=== PATIENT | female | born 1935 | race Caucasian/White ===

== ENCOUNTER 2017-04-24 17:42 | Inpatient (IN) ==
--- NOTE | 2017-04-24 18:11 | Emergency Department Note ---
Arrival - Arrival Chief Complaint: Syncope Stated Complaint: abdominal pain ED Nursing Triage Note: Patient to ER 14 via EMS. Patient complains of a syncopal episode about 2 hours ago. Patient complains of weakness and bloody diarrhea. Last episode of diarrhea was 1645. Mode of Arrival: Stretcher Source: Patient Time Seen by Provider: 04/24/17 18:04 - History of Present Illness HPI Narrative: 82 yo F presents with syncope and bloody diarrhea. Family states she is more pale than usual Onset (ago): day(s) (1) Consistency: constant Severity: moderate Quality: cramping Allergies/Adverse Reactions: Allergies Allergy/AdvReac Type Severity Reaction Status Date / Time No Known Allergies Allergy Unverified 04/24/17 19:00 Review of System - Review of System 12 point system: reviewed and no additional remarkable complaints except as stated Medical,Surgical,& Family Hx - Medical History Cardio: History of: Hypertension Endocrine: History of: Thyroid Disorder Gastrointestinal: History of: GERD Musculoskeletal: History of: Degenerative Disk Disease - Surgical History Reproductive Surgeries: Surgical HX of;: Hysterectomy - Social History Smoking Status: Never smoker Frequency of Alcohol Use: None Type of Drug Use: None Exam Vital Signs: Vital Signs Temperature 97.0 F L 04/24/17 17:44 Pulse Rate 73 04/24/17 19:00 Respiratory Rate 21 04/24/17 19:00 Blood Pressure 132/71 04/24/17 19:00 O2 Sat by Pulse Oximetry 96 04/24/17 19:00 - General General appearance: alert, in no apparent distress, other (pale) - Head Head exam: Present: atraumatic, normocephalic - Eye Eye exam: Present: normal appearance, other (pale conj) - ENT ENT exam: Present: normal exam - Neck Neck exam: Present: normal inspection - Chest Chest inspection: Present: normal inspection - Respiratory Respiratory exam: Present: normal lung sounds bilaterally - Cardiovascular Cardiovascular exam: Present: regular rate - Abdominal Exam Abdominal exam: Present: soft. Absent: tenderness - Extremities Exam Extremities exam: Present: normal inspection - Back Exam Back exam: Present: normal inspection - Neurological Exam Neurological exam: Present: alert, oriented X3. Absent: motor sensory deficit - Psychiatric Psychiatric exam: Present: normal affect - Skin Skin exam: Present: warm, dry, pallor Results - Labs CBC & BMP: 04/24/17 17:56 04/24/17 17:56 - Diagnostic Findings Procedure: CT Abdomen and Pelvis: image reviewed by me (see report) Disposition Clinical Impression: Syncope, Bloody diarrhea Case discussed with: patient Disposition: Still a Patient Condition: Stable
[2017-04-24 18:33] LABS: Basophils # 0.1 10*3/uL (0.0-0.2); Basophils % 0.3 % (0.0-0.8); Eosinophils % 0.1 % (0.00-10.9); Hematocrit 41.3 VOL% (35.7-47.0); Hemoglobin 14.1 GM/DL (12.0-16.0); Immature Granulocytes % 0.8 %; Immature Granulocytes Absolute 0.18 #; Lymphocytes # 2.3 10*3/uL (1.4-4.0); Mean Corpuscular HGB Conc 34.1 GM/DL (32-36); Mean Corpuscular Hemoglobin 32 PG (27-34); Mean Corpuscular Volume 92.8 FL (87-102); Mean Platelet Volume 10.1 FL (9.6-12.0); Monocytes # 1.5 10*3/uL (0.11-0.8); Monocytes % 6.5 % (1.7-12.7); Neutrophils # 18.6 10*3/uL (1.4-7.4); Neutrophils % 82.3 % (38.7-73.9); Platelet Count 347 T/CUMM (130-400); Red Blood Count 4.45 MC/CUMM (3.8-5.5); Red Cell Distribution Width 12.3 % (9.3-17.3); White Blood Count 22.6 T/CUMM (4-12)
[2017-04-24 18:48] LABS: PT Patient Result 10.7 SECS; Partial Thromboplastin Time 25.2 SECS (0-40)
[2017-04-24 18:52] LABS: Alanine Aminotransferase 31 U/L (13-56); Albumin 3.7 G/DL (3.4-5.0); Alkaline Phosphatase 170 U/L (45-117); Aspartate Amino Transferase 35 U/L (0-37); Bilirubin,Total < 0.39 MG/DL (0.2-1.0); Blood Urea Nitrogen 18 MG/DL (7-18); Calcium 9.5 MG/DL (8.5-10.1); Glucose 133 MG/DL (74-106); Magnesium 2.4 MG/DL (1.8-2.4); Osmolality,Calculated 267.5 MOS/KG (273-304); Potassium 4.6 MMOL/L (3.5-5.1); Sodium 132 MMOL/L (136-145); Total Protein 7.4 G/DL (6.4-8.3)
[2017-04-24 19:28] LABS: Lymphocytes 10 % (20-55); Metamyelocytes 2 %; Platelet Estimate Normal; Segmented Neutrophils 81 % (50-85); Total Cells Counted 100
--- NOTE | 2017-04-24 19:54 | CT Report ---
CT abdomen pelvis w con Indication: Abdominal pain and bloody diarrhea Comparison: None Technique: Multiple axial tomographic images of the abdomen and pelvis were obtained after the administration of 100 cc Omnipaque 350 intravenous contrast. Findings: Mild dependent change of the lungs present. Several small hypodensities are demonstrated throughout the liver which are too small to characterize but could reflect cysts. The gallbladder is grossly unremarkable. The pancreas is grossly unremarkable. The spleen is grossly unremarkable. The bilateral adrenal glands are grossly unremarkable. The bilateral kidneys are grossly unremarkable. The urinary bladder is incompletely distended. Status post hysterectomy. Mild wall thickening versus under distention of the transverse, descending, and sigmoid colon. Colitis not excluded. There is fluid noted within the proximal large bowel which may reflect diarrhea causing illness. There is trace free fluid within the pelvis. There is no evidence of gastrointestinal obstruction or acute appendicitis. Moderate atherosclerotic calcifications demonstrated. Visualized osseous and surrounding soft tissue structures demonstrate no acute abnormality. Diffuse osteopenia and scattered degenerative change. There is grade 1-2 anterolisthesis of L4 upon L5 with at least moderate spinal canal narrowing at this level. Chronic appearing mild wedge compression deformity of T12. IMPRESSION: Mild wall thickening versus under distention of the transverse, descending, and sigmoid colon. Colitis not excluded. There is fluid noted within the proximal large bowel which may reflect diarrhea causing illness. There is trace free fluid within the pelvis. Status post hysterectomy and other detailed findings as above. The CT exam was performed using one or more of the following dose reduction techniques: Automated exposure control, adjustment of the mA and/or kV according to patient size, or use of iterative reconstruction technique. PROCEDURE INTERPRETED AT [facility] DEPARTMENT OF RADIOLOGY Final Report Signed by: Dr Ham Landry
[2017-04-24 19:59] LABS: Apearance,Urine Slightly Hazy (Clear); Bilirubin,Urine Negative (Negative); Blood, Urine Negative (Negative); Glucose,Urine (UA) Negative (Negative); Granular Casts,Urine 2 /LPF (0-1); Hyaline Casts,Urine 1 /LPF (0-3); Ketones,Urine Negative (Negative); Nitrite,Urine Negative (Negative); Protein,Urine Negative; Squamous Epithelial Cell,Urine Occasional /HPF (0-10); Urine Color Yellow (Yellow); Urine Specific Gravity 1.012 (1.001-1.035); Urine Urobilinogen < 2.0 EU/DL (0.2-1.0); WBC,Urine 5 /HPF (0-6)
--- NOTE | 2017-04-24 20:16 | XRay Report ---
XR chest 1V portable Indication: Syncope Comparison: Chest x-ray dated July 11, 2012 Technique: Single frontal view of the chest. Findings: The cardiomediastinal silhouette is stable in configuration. Chronic change of the lungs without focal consolidation, pleural effusion, or pneumothorax. Visualized osseous and surrounding soft tissue structures appear grossly unchanged. IMPRESSION: Stable chest x-ray without acute cardiopulmonary process demonstrated. PROCEDURE INTERPRETED AT [facility] DEPARTMENT OF RADIOLOGY Final Report Signed by: Dr Ham Landry
--- NOTE | 2017-04-24 20:17 | Hospitalist History & Physical ---
Assessment and Plan (1) Lower GI bleed Status: Acute Assessment and plan: ct of abdomen shows diffuse thickening, worried about ischemic colitis, IV protonix, serial hgb, consult Dr. mcrae Current Visit: Yes (2) Ischemic colitis Status: Acute Assessment and plan: consult Dr Mcrae for opinion Current Visit: Yes (3) Near syncope Status: Acute Assessment and plan: ns at 125, cont to monitor hgb Current Visit: Yes (4) Hypothyroidism Status: Acute Assessment and plan: need home meds Current Visit: Yes (5) SOB (shortness of breath) Status: Acute Assessment and plan: cxr pending Current Visit: Yes (6) Hypotension Status: Acute Assessment and plan: resolved, will give NS bolus and cont ns at 125 ml/hr Current Visit: Yes (7) Leukocytosis Status: Acute Assessment and plan: UTI, blood cx times two, cxr pending, may be due to colitis, will do meropenem for now Current Visit: Yes (8) Seizure disorder Status: Acute Assessment and plan: need home meds jyoti Current Visit: Yes History of Present Illness Chief complaint: Lower GI bleed History of present illness: Ms. Mascorro is a 82 year old female with a history of chronic constipation who presents to the emergency room with bloody bowel movement. Patient said she was having a lot of abdominal cramping. She normally is very constipated from opioids that she takes for back pain. Son said there was blood in the diaper. Patient had a dark bowel movement in the emergency room. CT of the abdomen showed thickening of the transverse, descending and sigmoid colon. Questionable ischemic colitis. No diverticuli mentioned. Hemoglobin on admission is 14.1. Patient describes a near syncope event at home. Patient ambulates very little during the day and lives with her son. Patient's white count on admission was elevated at 22.6 but she denies any history of fever. Patient reports a history of chronic UTIs and has a mild UTI but nothing to explain the elevated white count. We will start her on meropenem and consult Dr. Mcrae Allergies Allergy/AdvReac Type Severity Reaction Status Date / Time No Known Allergies Allergy Unverified 04/24/17 19:00 Medical,Surgical,& Family Hx - Medical History Cardio: History of: Hypertension Psychological: History of: Depression Neurology: History of: Seizures No history of: Cerebrovascular Accident Endocrine: History of: Thyroid Disorder Gastrointestinal: History of: GERD Musculoskeletal: History of: Degenerative Disk Disease - Surgical History Abdominal Surgeries: Surgical HX of: Appendectomy Reproductive Surgeries: Surgical HX of;: Hysterectomy Additional Surgical History: multiple back surgeries - Family History Family History: Reports;: Family Diabetes Denies;: Family Heart Disease, Family Stroke - Social History Smoking Status: Former smoker (only smoke for 10 yr but was 3 ppk) Frequency of Alcohol Use: None Type of Drug Use: None Marital Status: Single Lives With:: Children Functional capacity: wheelchair bound - Constitutional Constitutional: Present: fatigue. Absent: fever(s), headache(s) - EENT Eyes: Present: blurry vision. Absent: diplopia Ears: Absent: decreased hearing, ear discharge Nose, mouth and throat: Absent: headache(s), sore throat - Cardiovascular Cardiovascular: Present: dyspnea, dyspnea on exertion, orthopnea, palpitations. Absent: chest pain at rest, edema - Respiratory Respiratory: Present: dyspnea, dyspnea on exertion. Absent: wheezing - Gastrointestinal Gastrointestinal: Present: abdominal pain, constipation, hematochezia, nausea. Absent: vomiting - Genitourinary Genitourinary: Absent: difficulty urinating, dysuria - Musculoskeletal Musculoskeletal: Present: back pain - Neurological Neurological: Present: dizziness. Absent: confusion, headache(s), syncope (but near syncope) - Psychiatric Psychiatric: Present: depression. Absent: anxiety - Endocrine Endocrine: Present: cold intolerance, fatigue. Absent: heat intolerance - Hematologic/Lymphatic Hematologic/Lymphatic: Absent: easy bleeding, easy bruising Exam - Constitutional Vitals: Period Temp Pulse Resp BP Sys/Mosley Pulse Ox Last 24 Hr 97.0 F-97.0 F 71-77 15-21 74-132/42-80 96-98 General appearance: normal weight, no acute distress - Head Head exam: Present: normal inspection, normocephalic - Eye Eye exam: Present: EOMI (left eye deviated to the left since ). Absent: scleral icterus Pupils: Present: SENTHIL, normal accommodation - ENT ENT exam: Present: normal exam, normal external ear exam - Neck Neck exam: Absent: lymphadenopathy, thyromegaly - Respiratory Respiratory exam: Present: clear to auscultation bilaterally. Absent: rhonchi, wheezes - Cardiovascular Cardiovascular exam: Present: regular rate and rhythm. Absent: systolic murmur - GI/Abdominal GI/Abdominal exam: Present: normal bowel sounds, soft. Absent: tenderness - Extremities Exam Extremities exam: Present: normal inspection, normal capillary refill - Neurological Exam Neurological exam: Present: alert, oriented X3, CN II-XII intact, motor sensory deficit (bilateral LE weakness 4/5 ), reflexes normal - Psychiatric Psychiatric exam: Present: normal affect, normal mood - Skin Skin exam: Present: normal color, warm Results - Labs CBC & BMP: 04/24/17 17:56 04/24/17 17:56 Lab Results: I have reviewed the past 24 hour labs - Diagnostic Findings Procedure: CT Abdomen and Pelvis: report reviewed by me (wall thickening of the transverse, descending and sigmoid colon )
[2017-04-24] MEDS ORDERED: SODIUM CHLORIDE 0.9% 500 ML IV ONE (20:28)
[2017-04-24] MEDS ORDERED: ONDANSETRON 4 MG/2 ML VIAL IV PRN (21:33)
[2017-04-24] MEDS ORDERED: ACETAMINOPHEN 325 MG TABLET PO PRN (21:33)
[2017-04-24 22:23] LABS: Hematocrit 40.1 VOL% (35.7-47.0); Hemoglobin 13.5 GM/DL (12.0-16.0)
[2017-04-24] MEDS: levETIRAcetam 500 MG TABLET PO SCH (22:58)
[2017-04-24] MEDS: SODIUM CHLORIDE 0.9% 1,000 ML IV SCH (22:58)
[2017-04-24] MEDS: GABAPENTIN 300 MG CAPSULE PO SCH (22:58)
[2017-04-24] MEDS: PANTOPRAZOLE 40 MG VIAL IV SCH (22:59)
[2017-04-24] MEDS: MEROPENEM 1,000 MG in SODIUM CHLORIDE 0.9% 100 ML IV SCH (22:59)
--- NOTE | 2017-04-25 06:05 | EKG Report ---
Stationary ECG Study [facility] ER Test Date: 04/24/2017 6:19:07 PM Pat Name: ROXANNA THEODORE Department: Room: 237 Gender: F [employer]: : 1935 Requested by: Juan F Xavier Order Number: [id number] Reading MD: DALIA JENNINGS Intervals [place] Rate: 69 P: 67 ID: [id number] QRS: 9 QRSD: 90 T: 29 QT: 397 QTc: 416 Interpretive Statements SINUS RHYTHM NONSPECIFIC T-WAVE ABNORMALITY Electronically Signed On 04-28-17 15:29:40 CDT by DALIA JENNINGS [email or web address]
[2017-04-25 07:45] LABS: Basophils % 0.2 % (0.0-0.8); Eosinophils % 0.4 % (0.00-10.9); Hematocrit 34.6 VOL% (35.7-47.0); Hemoglobin 11.6 GM/DL (12.0-16.0); Immature Granulocytes % 0.5 %; Immature Granulocytes Absolute 0.05 #; Lymphocytes # 2.6 10*3/uL (1.4-4.0); Mean Corpuscular HGB Conc 33.5 GM/DL (32-36); Mean Corpuscular Hemoglobin 31 PG (27-34); Mean Corpuscular Volume 93.3 FL (87-102); Mean Platelet Volume 9.6 FL (9.6-12.0); Monocytes # 0.9 10*3/uL (0.11-0.8); Monocytes % 7.8 % (1.7-12.7); Neutrophils # 7.4 10*3/uL (1.4-7.4); Neutrophils % 67.1 % (38.7-73.9); Platelet Count 277 T/CUMM (130-400); Red Blood Count 3.71 MC/CUMM (3.8-5.5); Red Cell Distribution Width 12.6 % (9.3-17.3)
[2017-04-25 08:05] LABS: Lymphocytes 26 % (20-55); Platelet Estimate Adequate; Segmented Neutrophils 66 % (50-85); Total Cells Counted 100
[2017-04-25] MEDS: DONEPEZIL 10 MG TABLET PO SCH (08:16)
[2017-04-25] MEDS: MEMANTINE 10 MG TABLET PO SCH ×2 (08:16→21:24)
[2017-04-25] MEDS: levETIRAcetam 500 MG TABLET PO SCH ×2 (08:16→21:24)
[2017-04-25] MEDS: PANTOPRAZOLE 40 MG VIAL IV SCH ×2 (08:16→21:24)
[2017-04-25] MEDS: LEVOTHYROXINE 100 MCG TABLET PO SCH (08:16)
[2017-04-25 08:20] LABS: Calcium 8.4 MG/DL (8.5-10.1); Osmolality,Calculated 275.7 MOS/KG (273-304)
[2017-04-25] MEDS: MEROPENEM 1,000 MG in SODIUM CHLORIDE 0.9% 100 ML IV SCH ×2 (08:20→21:23)
[2017-04-25 08:28] LABS: Risk Ratio 3.12; VLDL CHOLESTEROL 22.8 MG/DL
[2017-04-25 09:18] LABS: Hematocrit 36.1 VOL% (35.7-47.0); Hemoglobin 12.4 GM/DL (12.0-16.0)
[2017-04-25] MEDS: GABAPENTIN 600 MG TABLET PO SCH ×3 (10:26→18:32)
[2017-04-25] MEDS: SODIUM CHLORIDE 0.9% 1,000 ML IV SCH ×2 (10:56→21:24)
--- NOTE | 2017-04-25 11:44 | Gastrointestinal Consult Note ---
Assessment and Plan (1) Lower GI bleed Status: Acute Assessment and plan: 04/25-sudden onset of lower GI bleeding with abdominal pain and cramping with multiple bloody stools. No prior history of GI bleeding in the past. No prior colonoscopy in the past. H&H trending down from admission at -. Currently on Merrem IV for UTI. Continue to monitor at this time and transfuse as needed. Continue to monitor H&H. Clear liquid diet. Plan an addendum to followed by Dr. Mcrae. Current Visit: Yes History of Present Illness Chief complaint: Diarrhea History of present illness: Ms. Mascorro is a 82 year old female who was admitted to the hospital on yesterday with complaints of abdominal pain and lower GI bleeding. Patient is a fairly good historian however son is at bedside and assist in history taking. Information is also obtained from chart review. Patient states she was in her usual state of health until yesterday morning. She states that she has a history of chronic constipation due to taking pain medications for her back. Yesterday she had an onset of lower abdominal pain and cramping and shortly after that she had a loose diarrhea stools with a moderate amount of bright red blood noted. She states that while at home she had approximately 3-4 more bloody loose stools prior to coming to the hospital. Patient denies any prior history of GI bleeding in the past. She denies any recent weight loss, nausea or vomiting. She denies taking any NSAIDs other than occasional Mobic for back pain or anticoagulants. Upon admission to the hospital, she had a CT of abdomen with IV contrast with findings of mild wall thickening versus distention of the transverse, descending and sigmoid colon with fluid in the proximal large bowel. She was also found to have UTI with gram-positive cocci noted. On admission her H&H was noted at and is trended down to . Patient does not recall having a colonoscopy in the past but she did have an EGD in 2010 with normal findings. She reports she has had 2-3 more mild to moderate bloody bright red stools since admission on yesterday. She does state the abdominal pain is improved however still present prior to bowel movement. Denies any family history of colon cancer in the past. Home Medications Medication Instructions Recorded Confirmed Type Cholecalciferol (Vitamin D3) 2,000 unit PO DAILY 04/24/17 04/24/17 History [Vitamin D3] Gabapentin Cap/Tab [Neurontin 600 mg PO TID 04/24/17 04/24/17 History Cap/Tab] Gabapentin Cap/Tab [Neurontin 900 mg PO BEDTIME 04/24/17 04/24/17 History Cap/Tab] Levothyroxine Tab [Synthroid Tab] 100 mcg PO DAILY@0700 04/24/17 04/24/17 History Lisinopril 10 mg PO DAILY 04/24/17 04/24/17 History Meloxicam 15 mg PO DAILY 04/24/17 04/24/17 History Memantine HCl/Donepezil HCl 1 capsule PO QPM 04/24/17 04/24/17 History [Namzaric 28-10 mg] Ranitidine Tab [Zantac Tab] 150 mg PO DAILY 04/24/17 04/24/17 History Sodium Chl/Potassium Chl Tab 1 tablet PO BID 04/24/17 04/24/17 History [Thermotabs] amLODIPine [Norvasc] 5 mg PO DAILY 04/24/17 04/24/17 History levETIRAcetam [Levetiracetam] 500 mg PO BID 04/24/17 04/24/17 History Allergies Allergy/AdvReac Type Severity Reaction Status Date / Time No Known Allergies Allergy Unverified 04/24/17 19:00 Medical,Surgical,& Family Hx - Medical History Cardio: History of: Hypertension Psychological: History of: Depression Neurology: History of: Seizures No history of: Cerebrovascular Accident Endocrine: History of: Thyroid Disorder Genitourinary: History of: Recurring Urinary Tract Infections Gastrointestinal: History of: GERD No history of: Bowel Obstruction Musculoskeletal: History of: Back/Neck Problems, Degenerative Disk Disease - Surgical History Abdominal Surgeries: Surgical HX of: Appendectomy Reproductive Surgeries: Surgical HX of;: Hysterectomy - Family History Family History: Reports;: Family Diabetes Denies;: Family Heart Disease, Family Stroke - Social History Smoking Status: Former smoker Frequency of Alcohol Use: None Type of Drug Use: None 12 point system: reviewed and no additional remarkable complaints except as stated - Constitutional Constitutional: Present: as per HPI - EENT Eyes: Present: as per HPI Ears: Present: as per HPI Nose, mouth and throat: Present: as per HPI - Cardiovascular Cardiovascular: Present: as per HPI - Respiratory Respiratory: Present: as per HPI - Gastrointestinal Gastrointestinal: Present: as per HPI, abdominal pain, cramping, diarrhea, hematochezia, loose stools - Genitourinary Genitourinary: Present: as per HPI - Musculoskeletal Musculoskeletal: Present: as per HPI - Neurological Neurological: Present: as per HPI - Psychiatric Psychiatric: Present: as per HPI - Endocrine Endocrine: Present: as per HPI - Hematologic/Lymphatic Hematologic/Lymphatic: Present: as per HPI Exam - Constitutional Vitals: Period Temp Pulse Resp BP Sys/Mosley Pulse Ox Last 24 Hr 97.0 F-98.2 F 71-83 15-21 74-132/42-91 95-98 General appearance: normal weight, no acute distress - Head Head exam: Present: normal inspection, normocephalic - Eye Eye exam: Present: other (lids and conjunctiva unremarkable). Absent: scleral icterus - ENT ENT exam: Present: normal exam, normal oropharynx - Neck Neck exam: Present: normal inspection - Respiratory Respiratory exam: Present: clear to auscultation bilaterally. Absent: rales, rhonchi, wheezes - Cardiovascular Cardiovascular exam: Present: regular rate and rhythm. Absent: diastolic murmur , JVD, systolic murmur - GI/Abdominal GI/Abdominal exam: Present: normal bowel sounds, tenderness, soft. Absent: ascites, distended, mass, organomegaly - Extremities Exam Extremities exam: Present: normal inspection, full ROM - Back Exam Back exam: Present: normal inspection - Neurological Exam Neurological exam: Present: alert, oriented X3 - Psychiatric Psychiatric exam: Present: normal affect, normal mood - Skin Skin exam: Present: normal color, warm, dry Results - Labs CBC & BMP: 04/25/17 09:06 04/25/17 07:19 Lab Results: I have reviewed the past 24 hour labs - Diagnostic Findings Procedure: CT Abdomen and Pelvis: report reviewed by me
[2017-04-25 15:09] LABS: Hematocrit 35.2 VOL% (35.7-47.0); Hemoglobin 11.6 GM/DL (12.0-16.0)
--- NOTE | 2017-04-25 20:54 | Hospitalist Progress Note ---
Hospitalist: Subjective Interval history: 82 year old female with a history of chronic constipation who presents to the emergency room with bloody bowel movement. Patient said she was having a lot of abdominal cramping. She normally is very constipated from opioids that she takes for back pain. Son said there was blood in the diaper. Patient had a dark bowel movement in the emergency room. CT of the abdomen showed thickening of the transverse, descending and sigmoid colon. Questionable ischemic colitis. No diverticuli mentioned. Hemoglobin on admission is 14.1. Patient describes a near syncope event at home. Patient ambulates very little during the day and lives with her son. Patient's white count on admission was elevated at 22.6 but she denies any history of fever. Patient reports a history of chronic UTIs and has a mild UTI but nothing to explain the elevated white count. Exam - Constitutional Vitals: Period Temp Pulse Resp BP Sys/Mosley Pulse Ox Last 24 Hr 97.1 F-98.2 F 72-83 18-20 115-141/52-91 95-98 Exam: General: [No Acute Distress] HEENT: [Normocephalic, atraumatic, Extra ocular movements intact] Neck: [Supple, No JVD] Chest: [Clear to auscultation B/L] CV: [S1 + S2 audible without murmur, gallop or rub] Abd: Mild left lower quadrant tenderness Ext: [No edema] Skin: [No purpura, bruising or rash] Rheumatologic: [No Joint deformities] Neurologic: [Strengtg 5/5 all extremities, no gross sensory deficits] Results - Labs CBC & BMP: 04/25/17 14:55 04/25/17 07:19 - Impressions Assessment and Plan (1) Lower GI bleed Status: Acute Assessment and plan: ct of abdomen shows diffuse thickening, worried about ischemic colitis, IV protonix, serial hgb, consult Dr. mcrae Current Visit: Yes (2) Ischemic colitis Status: Acute Assessment and plan: consult Dr Mcrae for opinion Current Visit: Yes (3) Near syncope Status: Acute Assessment and plan: ns at 125, cont to monitor hgb Current Visit: Yes (4) Hypothyroidism Status: Acute Assessment and plan: need home meds Current Visit: Yes (5) SOB (shortness of breath) Status: Acute Assessment and plan: cxr pending Current Visit: Yes (6) Hypotension Status: Acute Assessment and plan: resolved, will give NS bolus and cont ns at 125 ml/hr Current Visit: Yes (7) Leukocytosis Status: Acute Assessment and plan: UTI, blood cx times two, cxr pending, may be due to colitis, will do meropenem for now Current Visit: Yes (8) Seizure disorder Status: Acute Assessment and plan: need home meds jyoti Current Visit: Yes
[2017-04-25] MEDS: GABAPENTIN 300 MG CAPSULE PO SCH (21:19)
[2017-04-26 02:18] LABS: Basophils % 0.4 % (0.0-0.8); Eosinophils # 0.1 10*3/uL (0.0-0.87); Eosinophils % 1.1 % (0.00-10.9); Hematocrit 31.7 VOL% (35.7-47.0); Hemoglobin 10.7 GM/DL (12.0-16.0); Immature Granulocytes % 0.3 %; Immature Granulocytes Absolute 0.03 #; Lymphocytes # 2.9 10*3/uL (1.4-4.0); Lymphocytes % 28.2 % (21.3-54.2); Mean Corpuscular HGB Conc 33.8 GM/DL (32-36); Mean Corpuscular Hemoglobin 31 PG (27-34); Mean Corpuscular Volume 92.2 FL (87-102); Monocytes # 0.6 10*3/uL (0.11-0.8); Monocytes % 6.1 % (1.7-12.7); Neutrophils # 6.6 10*3/uL (1.4-7.4); Neutrophils % 63.9 % (38.7-73.9); Platelet Count 251 T/CUMM (130-400); Red Blood Count 3.44 MC/CUMM (3.8-5.5); Red Cell Distribution Width 12.7 % (9.3-17.3); White Blood Count 10.4 T/CUMM (4-12)
[2017-04-26 02:46] LABS: Calcium 8.2 MG/DL (8.5-10.1); Osmolality,Calculated 279.1 MOS/KG (273-304); Potassium 3.7 MMOL/L (3.5-5.1)
[2017-04-26] MEDS: SODIUM CHLORIDE 0.9% 1,000 ML IV SCH ×3 (03:04→20:55)
[2017-04-26] MEDS: LEVOTHYROXINE 100 MCG TABLET PO SCH (06:07)
[2017-04-26] MEDS: PANTOPRAZOLE 40 MG VIAL IV SCH ×2 (08:49→22:06)
[2017-04-26] MEDS: DONEPEZIL 10 MG TABLET PO SCH (08:49)
[2017-04-26] MEDS: MEMANTINE 10 MG TABLET PO SCH ×2 (08:50→21:07)
[2017-04-26] MEDS: levETIRAcetam 500 MG TABLET PO SCH ×2 (08:50→20:55)
[2017-04-26] MEDS: GABAPENTIN 600 MG TABLET PO SCH ×3 (08:53→16:32)
[2017-04-26] MEDS: MEROPENEM 1,000 MG in SODIUM CHLORIDE 0.9% 100 ML IV SCH ×2 (08:58→22:08)
--- NOTE | 2017-04-26 11:19 | Gastrointestinal Progress Note ---
Assessment and Plan (1) Lower GI bleed Status: Acute Assessment and plan: 04/26-Continued episodes of bright red blood in stool. HH down slightly. Will schedule for colonoscopy on tomorrow. Plan and addendum to follow by Dr Mcrae. 04/25-sudden onset of lower GI bleeding with abdominal pain and cramping with multiple bloody stools. No prior history of GI bleeding in the past. No prior colonoscopy in the past. H&H trending down from admission at -. Currently on Merrem IV for UTI. Continue to monitor at this time and transfuse as needed. Continue to monitor H&H. Clear liquid diet. Plan an addendum to followed by Dr. Mcrae. Current Visit: Yes Gastroenterology - PN: Subj Interval history: CC: Lower GI bleed Pt is awake and alert, lying in bed with family at side. States she had an uneventful night. She is having some continued bloody stools at this time. She states she is having some mild abdominal cramping still along with this. HH has dropped slightly from to 08/08. We will begin prep today for colonoscopy on tomorrow. Pt wishes to proceed with this. Abdomen is soft, nontender. ROS: Denies SOB or chest pain Exam (Progress Note) - Constitutional Vitals: Period Temp Pulse Resp BP Sys/Mosley Pulse Ox Last 24 Hr 96.2 F-98 F 73-82 18-22 127-163/59-76 95-98 - Other Additional findings: General appearance: normal weight, no acute distress - Head Head exam: Present: normal inspection, normocephalic - Eye Eye exam: Present: other (lids and conjunctiva unremarkable). Absent: scleral icterus - ENT ENT exam: Present: normal exam, normal oropharynx - Neck Neck exam: Present: normal inspection - Respiratory Respiratory exam: Present: clear to auscultation bilaterally. Absent: rales, rhonchi, wheezes - Cardiovascular Cardiovascular exam: Present: regular rate and rhythm. Absent: diastolic murmur , JVD, systolic murmur - GI/Abdominal GI/Abdominal exam: Present: normal bowel sounds, tenderness, soft. Absent: ascites, distended, mass, organomegaly - Extremities Exam Extremities exam: Present: normal inspection, full ROM - Back Exam Back exam: Present: normal inspection - Neurological Exam Neurological exam: Present: alert, oriented X3 - Psychiatric Psychiatric exam: Present: normal affect, normal mood - Skin Skin exam: Present: normal color, warm, dry Results - Labs CBC & BMP: 04/26/17 01:45 04/26/17 01:45 Lab Results: I have reviewed the past 24 hour labs
[2017-04-26] MEDS ORDERED: BISACODYL 5 MG TABLET PO ONE (12:00)
[2017-04-26] MEDS ORDERED: POLYETHYLENE GLYCOL POWDER 255 GM BOTTLE PO ONE (13:00)
[2017-04-26] MEDS: GABAPENTIN 300 MG CAPSULE PO SCH (20:56)
--- NOTE | 2017-04-26 21:06 | Hospitalist Progress Note ---
Hospitalist: Subjective Interval history: 82-year-old female with abdominal pain GI bleed and suspected ischemic colitis she is going for a colonoscopy and is getting bowel prep Exam - Constitutional Vitals: Period Temp Pulse Resp BP Sys/Mosley Pulse Ox Last 24 Hr 96.2 F-98 F 76-91 18-22 127-178/64-78 95-98 Exam: General: [No Acute Distress] HEENT: [Normocephalic, atraumatic, Extra ocular movements intact] Neck: [Supple, No JVD] Chest: [Clear to auscultation B/L] CV: [S1 + S2 audible without murmur, gallop or rub] Abd: Mild left lower quadrant tenderness Ext: [No edema] Skin: [No purpura, bruising or rash] Rheumatologic: [No Joint deformities] Neurologic: [Strengtg 5/5 all extremities, no gross sensory deficits] Results - Labs CBC & BMP: 04/26/17 01:45 04/26/17 01:45 - Impressions Assessment and Plan (1) Lower GI bleed & anemia of acute GI blood loss Status: Acute Assessment and plan: ct of abdomen shows diffuse thickening, worried about ischemic colitis, IV protonix, serial hgb. Patient going for a colonoscopy in the morning Current Visit: Yes (2) Ischemic colitis Status: Acute Assessment and plan: Continue IV Merrem Current Visit: Yes (3) Near syncope Status: Acute Assessment and plan: ns at 125, cont to monitor hgb Current Visit: Yes (4) Hypothyroidism Status: Acute Assessment and plan: need home meds Current Visit: Yes (5) SOB (shortness of breath) Status: Acute Assessment and plan: cxr pending Current Visit: Yes (6) Hypotension Status: Acute Assessment and plan: resolved, will give NS bolus and cont ns at 125 ml/hr Current Visit: Yes (7) Leukocytosis Status: Acute Assessment and plan: UTI, blood cx times two, cxr pending, may be due to colitis, will do meropenem for now Current Visit: Yes (8) Seizure disorder Status: Acute Assessment and plan: need home meds jyoti Current Visit: Yes
[2017-04-27] MEDS: SODIUM CHLORIDE 0.9% 1,000 ML IV SCH ×2 (05:18→17:50)
[2017-04-27 05:37] LABS: Basophils # 0.1 10*3/uL (0.0-0.2); Basophils % 0.5 % (0.0-0.8); Eosinophils # 0.2 10*3/uL (0.0-0.87); Eosinophils % 1.6 % (0.00-10.9); Hematocrit 33.1 VOL% (35.7-47.0); Hemoglobin 11.2 GM/DL (12.0-16.0); Immature Granulocytes % 0.4 %; Immature Granulocytes Absolute 0.04 #; Lymphocytes # 3.3 10*3/uL (1.4-4.0); Lymphocytes % 32.6 % (21.3-54.2); Mean Corpuscular HGB Conc 33.8 GM/DL (32-36); Mean Corpuscular Hemoglobin 31 PG (27-34); Mean Corpuscular Volume 92.5 FL (87-102); Mean Platelet Volume 10.2 FL (9.6-12.0); Monocytes # 0.6 10*3/uL (0.11-0.8); Monocytes % 6.2 % (1.7-12.7); Neutrophils % 58.7 % (38.7-73.9); Platelet Count 281 T/CUMM (130-400); Red Blood Count 3.58 MC/CUMM (3.8-5.5); Red Cell Distribution Width 12.7 % (9.3-17.3); White Blood Count 10.2 T/CUMM (4-12)
[2017-04-27] MEDS ORDERED: MAGNESIUM CITRATE 300 ML BOTTLE PO ONE (06:00)
[2017-04-27 06:21] LABS: Calcium 8.6 MG/DL (8.5-10.1); Potassium 3.4 MMOL/L (3.5-5.1)
[2017-04-27] MEDS: PANTOPRAZOLE 40 MG VIAL IV SCH ×2 (08:46→20:08)
[2017-04-27] MEDS: MEROPENEM 1,000 MG in SODIUM CHLORIDE 0.9% 100 ML IV SCH ×2 (08:50→20:10)
[2017-04-27] MEDS: GABAPENTIN 600 MG TABLET PO SCH ×3 (12:47→17:51)
[2017-04-27] MEDS: LEVOTHYROXINE 100 MCG TABLET PO SCH (13:16)
--- NOTE | 2017-04-27 13:22 | History and Physical Update ---
History and Physical Update - History and Physical H&P was reviewed, the patient examined and there: are no changes in the patients condition since last H&P was completed. - Physical Exam Mental Status: alert and oriented Heart: regular rate and rhythm Lung: clear to auscultation Abdomen: within normal limits Vitals: within normal limits
--- NOTE | 2017-04-27 13:58 | Operative Note ---
Date of procedure: 04/27/17 Pre-op diagnosis: Lower GI bleed Procedure: Procedure note: Colonoscopy with biopsies rectosigmoid colon Physician: Dr. Victor Manuel Mcrae Brief clinical abstract: 82-year-old female is admitted with lower GI bleeding. This occurred after onset of crampy abdominal pain. She has been better from the standpoint with no active bleeding the last 24-48 hours. Endoscopic findings: After informed consent was obtained, the patient was placed in the left lateral decubitus position. Digital rectal exam was performed with no palpable abnormalities felt. Pediatric videocolonoscope was inserted into the rectum and advanced to the proximal sigmoid colon. Some looping of the endoscope occurred and I could not advance above this level. Pediatric colonoscope was withdrawn and then adult colonoscope was advanced into the rectum. This was advanced on to the cecum without significant difficulty. Withdrawal time was over 6 minutes duration. Bowel prep was of good quality. No polyps were seen. There were scattered diverticuli in the left colon. In the distal sigmoid colon and proximal rectum there was edema with subepithelial hemorrhage noted. The distal portion of the rectum was spared. Multiple biopsies were obtained from this area for pathologic examination. The endoscope was withdrawn in the rectum with retroflex view showing also moderate sized internal hemorrhoids. The endoscope was then removed. She appeared to tolerate the procedure well. Impression: #1 nonspecific colitis involving rectosigmoid colon-could be ischemic but the distribution with rectal involvement would be atypical. #2 left colon diverticulosis #3 internal hemorrhoids Plan: Advance diet. If tolerates and remains stable without active bleeding, could probably discharge within the next 24 hours. Anesthesia: MAC Surgeon / Physician: Luis Mcrae Estimated blood loss: minimal Specimens: other (Colitis sigmoid colon) Condition: stable Disposition: post procedure unit Results - Labs CBC & BMP: 04/27/17 04:35 04/27/17 04:35 Discharge Plan - Discharge Medications No Action amLODIPine [Norvasc] 5 mg PO DAILY Meloxicam 15 mg PO DAILY Sodium Chl/Potassium Chl Tab [Thermotabs] 1 tablet PO BID Cholecalciferol (Vitamin D3) [Vitamin D3] 2,000 unit PO DAILY levETIRAcetam [Levetiracetam] 500 mg PO BID Lisinopril 10 mg PO DAILY Gabapentin Cap/Tab [Neurontin Cap/Tab] 900 mg PO BEDTIME Gabapentin Cap/Tab [Neurontin Cap/Tab] 600 mg PO TID Ranitidine Tab [Zantac Tab] 150 mg PO DAILY Levothyroxine Tab [Synthroid Tab] 100 mcg PO DAILY@0700 Memantine HCl/Donepezil HCl [Namzaric 28-10 mg] 1 capsule PO QPM - Follow Up or Referral - Forms/Instructions
--- NOTE | 2017-04-27 14:17 | Anesthesia Post-Op ---
Anesthesia Post OP - Post Ansesthetic Evaluation Patient seen in post op: Yes Resp: within normal limits CV: within normal limits Mental: within normal limits Temp: within normal limits [id number]: within normal limits Nausea and Vomiting: within normal limits Pain: within normal limits
[2017-04-27] MEDS: DONEPEZIL 10 MG TABLET PO SCH (14:36)
[2017-04-27] MEDS: levETIRAcetam 500 MG TABLET PO SCH ×2 (14:36→20:07)
[2017-04-27] MEDS: MEMANTINE 10 MG TABLET PO SCH ×2 (14:37→20:11)
--- NOTE | 2017-04-27 15:42 | Hospitalist Progress Note ---
Assessment and Plan (1) Hypercholesterolemia Status: Acute Assessment and plan: Patient on low-cholesterol diet. Patient will have the diet advanced to low residue this for the coming 2 weeks. He has since the patient tomorrow with a repeat H&H Current Visit: Yes (2) Ischemic colitis Status: Acute Assessment and plan: History the patient has a long Current Visit: Yes (3) Lower GI bleed Status: Acute Assessment and plan: Repeat H&H in the morning Current Visit: Yes Hospitalist: Subjective Interval history: Patient has been seen interviewed and examined and chart has been reviewed just got back from GI lab underwent colonoscopy for lower GI bleeding. There is suspicion of colitis there is finding of diverticulosis without diverticular inflammation patient is not bleeding at this time. H&H will be tomorrow. By description of low gastroenterology disease colitis noted in the region of marginal artery however there is also information lower in the distal colon which makes it unusual for her to be ischemic colitis. Will follow up on the biopsy report. Exam - Constitutional Vitals: Period Temp Pulse Resp BP Sys/Mosley Pulse Ox Last 24 Hr 97.0 F-98.0 F 62-96 14-21 105-191/56-78 93-100 General appearance: normal weight - Head Head exam: Present: normocephalic, atraumatic - Eye Eye exam: Present: EOMI Pupils: Present: SENTHIL - Respiratory Respiratory exam: Present: clear to auscultation bilaterally - Cardiovascular Cardiovascular exam: Present: regular rate and rhythm - Extremities Exam Extremities exam: Present: full ROM - Neurological Exam Neurological exam: Present: alert, oriented X3, CN II-XII intact - Psychiatric Psychiatric exam: Present: normal affect, normal mood - Skin Skin exam: Present: normal color, warm, dry Results - Labs CBC & BMP: 04/27/17 04:35 04/27/17 04:35 Lab Results: I have reviewed the past 24 hour labs
[2017-04-27] MEDS: GABAPENTIN 300 MG CAPSULE PO SCH (20:08)
[2017-04-28] MEDS: SODIUM CHLORIDE 0.9% 1,000 ML IV SCH ×3 (04:25→14:31)
[2017-04-28 04:48] LABS: Basophils # 0.1 10*3/uL (0.0-0.2); Basophils % 0.6 % (0.0-0.8); Eosinophils # 0.1 10*3/uL (0.0-0.87); Eosinophils % 1.4 % (0.00-10.9); Hematocrit 31.8 VOL% (35.7-47.0); Hemoglobin 10.9 GM/DL (12.0-16.0); Immature Granulocytes % 0.1 %; Immature Granulocytes Absolute 0.01 #; Lymphocytes # 3.3 10*3/uL (1.4-4.0); Lymphocytes % 38.6 % (21.3-54.2); Mean Corpuscular HGB Conc 34.3 GM/DL (32-36); Mean Corpuscular Hemoglobin 31 PG (27-34); Mean Corpuscular Volume 90.9 FL (87-102); Mean Platelet Volume 10.3 FL (9.6-12.0); Monocytes # 0.7 10*3/uL (0.11-0.8); Monocytes % 7.9 % (1.7-12.7); Neutrophils # 4.4 10*3/uL (1.4-7.4); Neutrophils % 51.4 % (38.7-73.9); Platelet Count 258 T/CUMM (130-400); Red Cell Distribution Width 12.3 % (9.3-17.3); White Blood Count 8.5 T/CUMM (4-12)
[2017-04-28] MEDS: LEVOTHYROXINE 100 MCG TABLET PO SCH (08:28)
[2017-04-28] MEDS: GABAPENTIN 600 MG TABLET PO SCH ×2 (08:29→12:54)
[2017-04-28] MEDS: DONEPEZIL 10 MG TABLET PO SCH (08:29)
[2017-04-28] MEDS: MEMANTINE 10 MG TABLET PO SCH (08:29)
[2017-04-28] MEDS: levETIRAcetam 500 MG TABLET PO SCH (08:29)
[2017-04-28] MEDS: PANTOPRAZOLE 40 MG VIAL IV SCH (08:30)
[2017-04-28] MEDS: MEROPENEM 1,000 MG in SODIUM CHLORIDE 0.9% 100 ML IV SCH (08:34)
--- NOTE | 2017-04-28 10:27 | Gastrointestinal Progress Note ---
Assessment and Plan (1) Lower GI bleed Status: Acute Assessment and plan: 04/28-No further overt bleeding. HH holding at 08/08. Colonoscopy report noted with path report pending. Plan and addendum to follow by Dr Mcrae. 04/26-Continued episodes of bright red blood in stool. HH down slightly. Will schedule for colonoscopy on tomorrow. Plan and addendum to follow by Dr Mcrae. 04/25-sudden onset of lower GI bleeding with abdominal pain and cramping with multiple bloody stools. No prior history of GI bleeding in the past. No prior colonoscopy in the past. H&H trending down from admission at -. Currently on Merrem IV for UTI. Continue to monitor at this time and transfuse as needed. Continue to monitor H&H. Clear liquid diet. Plan an addendum to followed by Dr. Mcrae. Current Visit: Yes Gastroenterology - PN: Subj Interval history: CC: GI bleed Pt is seen awake and alert with family at side. States she rested well overnight and has reported no further bleeding at this time. Colonoscopy results noted with nonspecific colitis, left colon diverticulosis and internal hemorrhoids with path report pending. HH has remained stable at 08/08. She is tolerating a regular diet well at this time. Abdomen is soft, nontender. ROS: Denies SOB or chest pain Exam (Progress Note) - Constitutional Vitals: Period Temp Pulse Resp BP Sys/Mosley Pulse Ox Last 24 Hr 97.3 F-98.7 F 62-98 14-22 126-191/60-80 93-100 General appearance: normal weight, no acute distress - Head Head exam: Present: normal inspection, normocephalic - Eye Eye exam: Present: other (lids and conjunctiva unremarkable). Absent: scleral icterus - ENT ENT exam: Present: normal exam, normal oropharynx - Neck Neck exam: Present: normal inspection - Respiratory Respiratory exam: Present: clear to auscultation bilaterally. Absent: rales, rhonchi, wheezes - Cardiovascular Cardiovascular exam: Present: regular rate and rhythm. Absent: diastolic murmur , JVD, systolic murmur - GI/Abdominal GI/Abdominal exam: Present: normal bowel sounds, soft. Absent: ascites, distended, mass, organomegaly, tenderness - Extremities Exam Extremities exam: Present: normal inspection, full ROM - Back Exam Back exam: Present: normal inspection - Neurological Exam Neurological exam: Present: alert, oriented X3 - Psychiatric Psychiatric exam: Present: normal affect, normal mood - Skin Skin exam: Present: normal color, warm, dry Results - Labs CBC & BMP: 04/28/17 03:52 04/27/17 04:35 Lab Results: I have reviewed the past 24 hour labs
--- NOTE | 2017-04-28 11:28 | Pathology Report from [facility] ---
[facility] ACCESSION # : [id number] PATIENT NAME : Sana Theodore ORDERING DR : DANIA ROJAS MD CLINICAL HX: Lower GI Bleed POST-OP DX: Colitis of rectosigmoid colon SPECIMEN INFO: Sigmoid biopsy GROSS DESCRIPTION: The specimen is received in formalin labeled with the patients name and consists of a 0.6 x 0.4 cm aggregate of cadet tissue. Submitted in one cassette. DIAGNOSIS FOR SANA THEODORE: SIGMOID BIOPSY: Benign colonic mucosal with early superficial ischemic changes and mild neutrophilic debris suggestive of resolving acute self-limited colitis. No evidence of malignancy. COLLECTED DATE: 04/27/2017 [facility] REPORT DATE: 04/28/2017 ELECTRONICALLY SIGNED BY: Percy Guerra III, M.D. 04/28/2017 - 9:44:28 [facility]
--- NOTE | 2017-04-28 11:45 | Discharge Summary ---
Hospital Course - Hospital Course Hospital Course: Ms. Mascorro is an 82-year-old female with a history of chronic constipation who presented to the [place] ED on 04/24/2017 with complaints of bloody bowel movement. Patient does have chronic back pain for which she takes opioids. This contributes to her constipation. At the time of admission, CT of abdomen showed thickening of the transverse, descending and sigmoid colon. Hemoglobin on admission was 14.1. WBC was elevated 22.6 however the patient was afebrile. There was evidence of UTI by urinalysis. Patient was admitted, IV Merrem was started, clear liquid diet was initiated and gastroenterology was consulted. On 04/25/2017 patient's hemoglobin was noted to be 11. 04/27/2017, the patient underwent a colonoscopy with biopsies of rectosigmoid colon. Impressions were as follows: 1. Nonspecific colitis involving rectosigmoid colon. Could be ischemic but the distribution with rectal involvement would be atypical. 2. Left colon diverticulosis 3. Internal hemorrhoids GI recommended advance diet as tolerated. At the time of discharge, H&H was holding and 10 and 31. No further overt bleeding. Pathology from biopsies pending. Patient may call for biopsy results in 1 week. The remainder of her hospital course was uncomplicated highlighted by management of her chronic conditions. At this time she is reached maximum benefit from hospitalization and is stable for discharge. She should follow-up with her PCP in 1-2 weeks. Additional discharge orders and follow-up instructions to follow per Dr. Mccabe. - Time spent with patient Time with patient DS: Greater than 30 minutes Discharge Plan - Discharge Medications No Action amLODIPine [Norvasc] 5 mg PO DAILY Meloxicam 15 mg PO DAILY Sodium Chl/Potassium Chl Tab [Thermotabs] 1 tablet PO BID Cholecalciferol (Vitamin D3) [Vitamin D3] 2,000 unit PO DAILY levETIRAcetam [Levetiracetam] 500 mg PO BID Lisinopril 10 mg PO DAILY Gabapentin Cap/Tab [Neurontin Cap/Tab] 900 mg PO BEDTIME Gabapentin Cap/Tab [Neurontin Cap/Tab] 600 mg PO TID Ranitidine Tab [Zantac Tab] 150 mg PO DAILY Levothyroxine Tab [Synthroid Tab] 100 mcg PO DAILY@0700 Memantine HCl/Donepezil HCl [Namzaric 28-10 mg] 1 capsule PO QPM - Follow Up or Referral - Forms/Instructions Exam - Constitutional Vitals: Period Temp Pulse Resp BP Sys/Mosley Pulse Ox Last 24 Hr 97.3 F-98.7 F 62-98 14-22 126-191/60-80 93-100 Discharge Results Procedures and tests throughout hospitalization: Pending Orders 04/24/17 21:51 Blood Culture Stat 04/25/17 03:15 Occult Blood, Stool Stat Labs on day of discharge: Labs from last 24 hours 04/28/17 03:52 WBC 8.5 RBC 3.50 L Hgb 10.9 L Hct 31.8 L MCV 90.9 MCH 31 MCHC 34.3 RDW 12.3 Plt Count 258 MPV 10.3 Neut % (Auto) 51.4 Lymph % (Auto) 38.6 [place] % (Auto) 7.9 Eos % (Auto) 1.4 Baso % (Auto) 0.6 Neut # (Auto) 4.4 Lymph # (Auto) 3.3 [place] # (Auto) 0.7 Eos # (Auto) 0.1 Baso # (Auto) 0.1 Immature Gran % 0.1 Nucleated RBC % 0.0 Immature Gran # 0.01 Nucleated RBCs # 0.00 Preliminary micro results at discharge 04/24/17 21:51 Blood Culture - Preliminary Blood No growth at 3 days 04/24/17 21:51 Blood Culture - Preliminary Blood No growth at 3 days DS: Provider Date of admission: 04/24/17 20:04 Primary care physician: . No PCP Attending physician on admission: Ryan Knox MD Consults: 04/24/17 21:33 Consult to Physician [CONS] Routine Comment: lower gi bleed, colitis? ischemic? Consulting Provider: Luis Mcrae When should Consulting Provider be notified: In am Discharging clinician: Singh BYERS Expected date of discharge: 04/28/17
[2017-04-28 13:03] VITALS: BP 168/72
--- NOTE | 2017-04-28 13:29 | Discharge Summary ---
Hospital Course - Hospital Course Hospital Course: Ms. Mascorro is an 82-year-old female with a history of chronic constipation who presented to the [facility] ED on 04/24/2017 with complaints of bloody bowel movement. Patient does have chronic back pain for which she takes opioids. This contributes to her constipation. At the time of admission, CT of abdomen showed thickening of the transverse, descending and sigmoid colon. Hemoglobin on admission was 14.1. WBC was elevated 22.6 however the patient was afebrile. There was evidence of UTI by urinalysis. Patient was admitted, IV Merrem was started, clear liquid diet was initiated and gastroenterology was consulted. On 04/25/2017 patient's hemoglobin was noted to be 11. 04/27/2017, the patient underwent a colonoscopy with biopsies of rectosigmoid colon. Impressions were as follows: 1. Nonspecific colitis involving rectosigmoid colon. Could be ischemic but the distribution with rectal involvement would be atypical. 2. Left colon diverticulosis 3. Internal hemorrhoids GI recommended advance diet as tolerated. At the time of discharge, H&H was holding and 10 and 31. No further overt bleeding. Pathology from biopsies pending. Patient may call for biopsy results in 1 week. The remainder of her hospital course was uncomplicated highlighted by management of her chronic conditions. At this time she is reached maximum benefit from hospitalization and is stable for discharge. She should follow-up with her PCP in 1-2 weeks. Additional discharge orders and follow-up instructions to follow per Dr. Mccabe. Diagnosis - Discharge Diagnosis (1) Hypercholesterolemia Status: Acute (2) Ischemic colitis Status: Acute (3) Lower GI bleed Status: Acute Discharge Plan - Discharge Data Disposition: Disch To Home/Self Care Condition at Discharge: Stable Discharge Diet: other (Low fiber no seeds diet) Activity: resume usual activities as tolerated Hygiene: no restrictions Weight Bearing at Discharge: weight bear as tolerated Contact your physician if you experience:: fever over 101, Shortness of breath, Bleeding, pain uncontrolled by pain medications - Discharge Medications New Polyethylene Glycol Powder [Miralax] 17 gm PO DAILY #238 gm Continue amLODIPine [Norvasc] 5 mg PO DAILY Meloxicam 15 mg PO DAILY Sodium Chl/Potassium Chl Tab [Thermotabs] 1 tablet PO BID Cholecalciferol (Vitamin D3) [Vitamin D3] 2,000 unit PO DAILY levETIRAcetam [Levetiracetam] 500 mg PO BID Lisinopril 10 mg PO DAILY Gabapentin Cap/Tab [Neurontin Cap/Tab] 900 mg PO BEDTIME Gabapentin Cap/Tab [Neurontin Cap/Tab] 600 mg PO TID Ranitidine Tab [Zantac Tab] 150 mg PO DAILY Levothyroxine Tab [Synthroid Tab] 100 mcg PO DAILY@0700 Memantine HCl/Donepezil HCl [Namzaric 28-10 mg] 1 capsule PO QPM - Follow Up or Referral - Forms/Instructions Exam - Constitutional Vitals: Period Temp Pulse Resp BP Sys/Mosley Pulse Ox Last 24 Hr 97.3 F-98.7 F 62-98 14-22 126-171/60-80 93-100 General appearance: normal weight, no acute distress - Head Head exam: Present: normal inspection, normocephalic - Eye Eye exam: Present: EOMI Pupils: Present: SENTHIL - ENT ENT exam: Present: normal exam - Respiratory Respiratory exam: Present: clear to auscultation bilaterally - Cardiovascular Cardiovascular exam: Present: regular rate and rhythm - GI/Abdominal GI/Abdominal exam: Present: normal bowel sounds, soft - Extremities Exam Extremities exam: Present: full ROM - Neurological Exam Neurological exam: Present: alert, oriented X3, CN II-XII intact - Psychiatric Psychiatric exam: Present: normal affect, normal mood - Skin Skin exam: Present: normal color, warm, dry Discharge Results Procedures and tests throughout hospitalization: Pending Orders 04/24/17 21:51 Blood Culture Stat 04/25/17 03:15 Occult Blood, Stool Stat Labs on day of discharge: Labs from last 24 hours 04/28/17 03:52 WBC 8.5 RBC 3.50 L Hgb 10.9 L Hct 31.8 L MCV 90.9 MCH 31 MCHC 34.3 RDW 12.3 Plt Count 258 MPV 10.3 Neut % (Auto) 51.4 Lymph % (Auto) 38.6 [place] % (Auto) 7.9 Eos % (Auto) 1.4 Baso % (Auto) 0.6 Neut # (Auto) 4.4 Lymph # (Auto) 3.3 [place] # (Auto) 0.7 Eos # (Auto) 0.1 Baso # (Auto) 0.1 Immature Gran % 0.1 Nucleated RBC % 0.0 Immature Gran # 0.01 Nucleated RBCs # 0.00 Preliminary micro results at discharge 04/24/17 21:51 Blood Culture - Preliminary Blood No growth at 3 days 04/24/17 21:51 Blood Culture - Preliminary Blood No growth at 3 days DS: Provider Date of admission: 04/24/17 20:04 Primary care physician: . No PCP Attending physician on admission: Ryan Knox MD Consults: 04/24/17 21:33 Consult to Physician [CONS] Routine Comment: lower gi bleed, colitis? ischemic? Consulting Provider: Luis Mcrae When should Consulting Provider be notified: In am 04/28/17 13:10 Consult to Case Mgmt/Social Srvs [CONS] Routine Reason for Case Mgmt/Social Srvs: Discharge Planning Consult Comment: home health with rolator an PT Discharging clinician: Yang Mccabe MD
--- NOTE | 2017-05-01 16:01 | Physician Query Form ---
CLICK EDIT DOCUMENT TO SELECT QUERY ANSWER --> OK --> SIGN Genie Holcomb RN Clinical Taker Away W) [phone] (f) [phone] [email or web address] PROVIDERS: Make your selection(s) from the choices in EACH section by typing an "x" and enter comments in the comment section. Please use your independent medical judgment in providing your response. This request does not imply that any particular answer is desired or expected. CLINICAL INDICATORS: (Providers should not edit this section) Based on documentation of "Acute lower GI bleed" "She normally is very constipated" "Dark bowel movement" "Acute ischemic colitis" Colonoscopy showed "Biopsies obtained. Left colon diverticulosis. Internal hemorrhoids" Based on the above, could you clarify the appropriate diagnosis, if significant , that supports the above abnormalities and additional evaluation, monitoring, and/or treatment rendered: ( ) Lower GI Bleeding due to Acute Ischemic Colitis (x ) Lower GI Bleeding due to Acute Diverticulosis ( ) Lower GI Bleeding due to Internal Hemorrhoids ( ) Lower GI Bleeding due to other (please specify) ( ) Other, please specify: ( ) Clinically unable to determine COMMENTS: PLEASE ALSO DOCUMENT RESPONSE IN PROGRESS NOTES AND/OR DISCHARGE SUMMARY Use of terms such as suspected, likely, or probable (associated with a specific diagnosis that is being evaluated, monitored, or treated as if it exists) are acceptable and can be restated in the discharge summary if not ruled out. MTDD
== END 2017-04-28 14:28 | disposition home health service (06) | DRG 377 ==
LOC: EDBD → EDUNIT# → N.ED 17:42 → N.EDINP 20:04 → SUATTDRO 20:04 → N.2E 21:00
PROVIDERS: ADMIT Internal Medicine; ATTEND Internal Medicine Infectious Disease
PROC: COLONBX (2017-04-27 12:35)